=== PATIENT | female | born 1970 | race Hispanic/Latino ===

== ENCOUNTER 2023-02-24 18:25 | Emergency (ER) | payer OTHER ==
[~2023-02-24] VITALS: Ht 157.5 cm; Wt 81.6 kg
[2023-02-24] MEDS ORDERED: IBUPROFEN 600 MG TABLET PO ONE (20:00)
[2023-02-24 20:58] VITALS: BP 159/81
== END 2023-02-24 21:49 | disposition home or self-care (01) ==
LOC: EDH 18:25
DX: G89.29 Other chronic pain (principal); M25.572 Pain in left ankle and joints of left foot; M25.472 Effusion, left ankle; I10 Essential (primary) hypertension; E11.9 Type 2 diabetes mellitus without complications
CPT/HCPCS: 73600; 73620